=== PATIENT | female | born 1955 | race Caucasian/White ===

== ENCOUNTER 2016-05-31 00:57 | Day surgery (SDC) | payer OTHER ==
[2016-05-31] VITALS (9 sets, daily range): BP systolic 105–128; BP diastolic 55–70; PULSE 66–75; RESP 12–19; O2SAT 96–100
[~2016-05-31] VITALS: Ht 165.1 cm; Wt 75.0 kg
[~2016-05-31 00:57] MED LIST: ALBU6.7H INH; ASPI-973 PO; CYCL10TA9 PO; FLUT12AE8 IH; GABA-502 PO; LOVA20TA PO; MELO7.5T13 PO; METF-496 PO; NITR0.4T SL; ONDA-53 PO; TRAM-14 PO
[2016-05-31] MEDS ORDERED: 0.9% Sodium Chloride 1,000 ML IV ONE (09:10)
[2016-05-31] MEDS ORDERED: Heparin 5,000 Units/500 mL NS Premix IV ONE (10:25)
[2016-05-31] MEDS ORDERED: 0.9% Sodium Chloride 1,000 ML ONE (10:29)
[2016-05-31] MEDS ORDERED: Heparin 1,000 Unit/mL 10 mL Inj ONE (10:29)
--- NOTE | 2016-05-31 12:00 | NUR ---
ADMISSION NOTE FEMALE PT ADMITTED FOR HEART CATH. DISCUSSED PLAN OF CARE WITH PT AND FAMILY . SEE ADMIT AND FLOW SHEET
[2016-05-31] MEDS ORDERED: fentaNYL-PF 50 mCg/mL 2 mL Inj ONE (13:41)
[2016-05-31] MEDS ORDERED: 0.9% Sodium Chloride 1,000 ML IV PRN (14:22)
[2016-05-31] MEDS ORDERED: 0.9% Sodium Chloride 250 ML IV PRN (14:22)
[2016-05-31] MEDS ORDERED: Atropine 1 mg/10 mL (Code) Syringe IVPUSH PRN (14:25)
[2016-05-31] MEDS ORDERED: Ondansetron 2 mg/mL 2 mL Inj IVPUSH PRN (14:25)
--- NOTE | 2016-05-31 14:36 | NUR ---
POST PROCEDURE NOTE RETURNED FROM [employer]. SEE FLOW SHEET
[2016-05-31] MEDS ORDERED: VENL150T3 PO (15:20)
--- NOTE | 2016-05-31 16:38 | PCM.CVCATH ---
Cardiac Cath Report Date of Service May 31, 2016 Primary Indication This is a 60-year-old female with abnormal stress test. The patient is here for more definite assessment of coronary anatomy for long-term management. Procedure 1. Left heart catheterization 2. Selective coronary angiogram 3. Left ventricular angiogram 4. Right femoral angiogram Vascular Access Right femoral artery Procedure Details The patient was brought into the catheterization laboratory. The patient was nothing by mouth since midnight. The patient was prepped and sterilized in the appropriate fashion. Local anesthetic was given to the right groin region with lidocaine 1%. A percutaneous stick to the right groin region with an 18-gauge Seldinger needle was attempted. A 6 Japanese sheath was inserted into the right femoral artery. A 6 Japanese FL 4 diagnostic catheter was advanced and engaged into the left main. The left coronary angiography was performed in multiple views. The catheter was exchanged over the wire for a 6 Japanese FR4 diagnostic catheter. The catheter was engaged in the right coronary ostium and the right coronary angiography was performed in multiple views. The catheter was removed over the wire and exchanged for 6 Japanese angle pigtail catheter. LV hemodynamics were recorded. Left ventricular angiography was performed at 12 mL /s for total 30 mL of contrast. LV pullback was performed. All catheters were removed. The right femoral angiogram was performed to evaluate for closure device. Hemostasis was obtained with star close. The patient was transferred back to special observation unit for post procedural monitoring. There were no immediate complications. Total fluoroscopy time: 2 minutes Total fluoroscopy dosage: 264 mGy Estimated blood loss: 5 mL Total contrast: 55 mL Findings 1. Hemodynamics: The left ventricular systolic pressure was estimated at 179 mmHg and the left ventricular end-diastolic pressure was estimated at 19 mmHg. There is no significant gradient during pullback. Aortic systemic pressure was 178/72 mmHg. 2. Selective coronary angiography: A. Left main: There artery has no evidence of significant disease. It bifurcates into the left anterior and left circumflex arteries. B. Left anterior descending artery: There is no evidence of significant disease. C. Left circumflex artery: This is a nondominant artery. There is no evidence of significant disease. D. Right coronary artery: This is a dominant vessel. There is no evidence of significant disease. 3. Left ventricular angiogram: The ejection fraction is around 65 %. There is no appreciable LV wall motion abnormalities. 4. Right femoral angiogram: There is no evidence of significant disease. Summary 1. Normal coronaries angiographically 2. Mildly elevated left ventricular end-diastolic pressures. 3. Normal LV ejection fraction and normal LV wall motion. 4. Significant hypertension. Recommendations Patient's coronaries are normal. Patient's chest pain is not ischemic in nature. Patient does have significant hypertension. Continue with aggressive blood pressure control. Otherwise the patient is doing very well and should be able to go home in 2 hours. was informed that she should continue to follow-up with her primary care provider to discuss other potential etiologies of her symptoms. copies to: Kaitlin Gramajo MD, Oscar J MD May 31, 2016 16:38
--- NOTE | 2016-05-31 17:01 | NUR ---
Pt off bedrest x 30 minutes, Right groin remains stable without hematoma or bleeding/oozing. She complain of an 8-9/10 headache concentrated on both sides of her head. She has a history of migraine headaches and confirms this is similar quality. 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 She has no tongue deviation, egual arm strength, no drift. She is able to ambulate to bathroom to void with minimal assistance, using her cane. Tylenol 975mg p.o given, Dr Garland informed and he confirms appropriateness of discharging patient. discharge instructions discussed with patient and her boyfriend. She is discharged ambulatory using her cane with boyfriend in attendance.
== END 2016-05-31 23:59 | disposition home or self-care (01) ==
LOC: SOUO 00:57
PROVIDERS: ATTEND Internal Medicine Cardiovascular Disease
DX: R94.39 Abnormal result of other cardiovascular function study (principal); R07.9 Chest pain, unspecified; I10 Essential (primary) hypertension; E11.9 Type 2 diabetes mellitus without complications; E78.5 Hyperlipidemia, unspecified; Z87.891 Personal history of nicotine dependence; Z79.82 Long term (current) use of aspirin; Z79.84 Long term (current) use of oral hypoglycemic drugs
CPT/HCPCS: 93458; 99152; 99153; C1760; C1769; J1200; J1644; J2060; J2250; J3010; J7030; Q9967